=== PATIENT | male | born 1965 | race Caucasian/White ===

== ENCOUNTER 2020-06-11 08:31 | Emergency (ER) | payer OTHER, SELFPAY ==
[2020-06-11 08:43] VITALS: BP 160/85; PULSE 81; RESP 16; TEMP 37.3; O2SAT 99
--- NOTE | 2020-06-11 08:55 | ED.SKABFB ---
HPI - Skin/Abscess/Foreign Bdy General Chief complaint: Skin/Abscess/Foreign Body Stated complaint: Bee sting Time Seen by Provider: 06/11/20 08:43 Source: patient and RN notes reviewed Mode of arrival: ambulatory Limitations: no limitations History of Present Illness HPI narrative: Patient presents today after he was stung by a bee on his abdomen 2 days ago. Reports the area of redness has spread significantly since onset and has now become firm and mildly tender. He has been taking ibuprofen with mild relief. Denies fever. Does not have a known bee allergy. MD complaint: insect bite/sting Related Data Allergies Allergy/AdvReac Type Severity Reaction Status Date / Time No Known Allergies Allergy Unverified 05/28/15 21:48 Review of Systems Review of Systems: Narrative: CONSTITUTIONAL: Denies body aches, fever, chills, or sweats. EYES: Denies visual changes, redness, or discharge. ENT: Denies rhinorrhea, congestion, sore throat, or otalgia. CARDIOVASCULAR: Denies chest pain, palpitations, or edema. RESPIRATORY: Denies cough or dyspnea. GASTROINTESTINAL: Denies abdominal pain, nausea, vomiting, or diarrhea. GENITOURINARY: Denies dysuria or hematuria. SKIN: Denies rash, itching, or wounds. + Bee sting to abdomen MUSCULOSKELETAL: Denies back pain, joint pain, or myalgia. NEUROLOGIC: Denies headache, numbness, tingling, or weakness. PSYCH: Denies depression or anxiety. [facility] Family History Family History (Updated 11/05/10 @ 10:05 by DOCTOR UNKNOWN) Other Cerebrovascular accident Diabetes mellitus Family history of arthritis Hypertension Social History Social History Alcohol intake: never Comments At time of signature, I have reviewed and agree with nursing past medical, surgical, social and family history unless otherwise noted. Please see nursing chart for further information. There is no relevant family history pertinent to the presenting complaint Exam Narrative: Exam Narrative: GENERAL: Well-appearing, well-nourished, and in no acute distress. HEAD: Normocephalic, atraumatic. EYES: EOMI. No redness or drainage. Conjunctivae normal. ENT: Mucous membranes pink and moist. NECK: Normal AROM. CHEST: No respiratory distress. ABDOMEN: Soft, nontender, nondistended, normal active bowel sounds. 9x13cm area of erythema to the midline abdomen with center area of darker erythema and induration measuring 5x5cm round. Mildly tender to palpation. Scant edema to the area. No fluctuance. MUSCULOSKELETAL: No bony tenderness. EXTREMITIES: Normal range of motion. No edema. SKIN: Warm, dry. Capillary refill normal. Normal skin turgor. NEURO: No focal deficits. Alert and oriented x3. Gait steady. PSYCH: Normal affect. No signs of depression or anxiety. Course Vital Signs Vital signs: Vital Signs Temperature 99.2 F 06/11/20 08:43 Pulse Rate 81 06/11/20 08:43 Respiratory Rate 16 06/11/20 08:43 Blood Pressure 160/85 H 06/11/20 08:43 Pulse Oximetry 99 06/11/20 08:43 Temperature 99.2 F 06/11/20 08:43 Pulse Rate 81 06/11/20 08:43 Respiratory Rate 16 06/11/20 08:43 Blood Pressure 160/85 H 06/11/20 08:43 Pulse Oximetry 99 06/11/20 08:43 Reviewed. Pt has been instructed to follow up with his PCP regarding his elevated blood pressure today. MDM - Skin/Abscess/Foreign Bdy Differential Diagnosis Differential diagnosis: Likely abscess of skin or subcutaneous tissue, cellulitis, insect bites and impetigo Critical Care Time Critical Care Time Critical Care Time: No Discharge Plan Discharge Clinical Impression: Infected insect bite or sting Cellulitis Qualifiers: Site of cellulitis: trunk Site of cellulitis of trunk: abdominal wall Qualified Code(s): L03.311 - Cellulitis of abdominal wall Patient Disposition: Home, Self-Care Condition: Stable Instructions: Antibiotic Form, Cellulitis (DC) Additional Instructions: Please take the Keflex as prescribed u
== END 2020-06-11 09:05 | disposition home or self-care (01) ==
PROVIDERS: Emergency Provider Nurse Practitioner; PCP Family Medicine Adolescent Medicine
DX: L03.311 Cellulitis of abdominal wall (principal); T63.441A Toxic effect of venom of bees, accidental (unintentional), initial encounter
CPT/HCPCS: 99213; G0463

== ENCOUNTER 2021-07-08 08:18 | Emergency (ER) | payer OTHER, SELFPAY ==
[2021-07-08 08:27] VITALS: BP 136/75; PULSE 78; RESP 16; TEMP 37; O2SAT 99
--- NOTE | 2021-07-08 08:27 | ED.GENADULT ---
HPI - General Adult General Chief complaint: Unspecified Stated complaint: right side pelvic pain Time Seen by Provider: 07/08/21 08:27 Source: patient and RN notes reviewed Mode of arrival: ambulatory Limitations: no limitations History of Present Illness HPI narrative: 56-year-old male presents to the [facility] with right groin pain that started around 07 June. Had seen primary care provider was prescribed prednisone. Was running last week and irritated the area again. Was playing golf on Wednesday when the pain increased. Patient states that after playing golf had trouble walking, yesterday was better and today was having less discomfort. States Related Data Allergies Allergy/AdvReac Type Severity Reaction Status Date / Time No Known Allergies Allergy Unverified 07/08/21 08:20 Review of Systems Review of Systems: All systems reviewed & are unremarkable except as noted in HPI and below Constitutional: Constitutional: Reports no additional constitutional complaints Eyes: Eyes: Reports no additional eye complaints ENT: Reports system reviewed and no additional complaints, except as documented Cardiovascular: Cardiovascular: Reports no additional cardiovascular complaints Respiratory: Respiratory: Reports no additional respiratory complaints Gastrointestinal: Gastrointestinal: Reports no additional gastrointestinal complaints Genitourinary: Genitourinary: Reports no additional male genitourinary complaints, Denies hematuria, Denies genital pain, Denies dysuria, Denies flank pain, Denies scrotal swelling, Denies testicular pain, Denies urinary incontinence and Denies urinary urgency Musculoskeletal: Musculoskeletal: Reports as per HPI and Reports other (right groin pain) Integumentary/Breasts: Skin/Breast: Reports as per HPI Comments: bruising to the right thigh Neurologic: Reports system reviewed and no additional complaints, except as documented Psychiatric: Psychiatric: Reports no additional psychiatric complaints Allergic/Immunologic: Allergic/Immunologic: Reports no additional allergic/immunologic complaints ON LICENSE OF [facility] Past Medical History Medical History (Updated 07/08/21 @ 08:44 by Kindra Nelson) No active medical problems Surgical History Surgical History History of arthroscopic knee surgery History of back surgery Family History Family History Other Cerebrovascular accident Diabetes mellitus Family history of arthritis Hypertension Social History Social History Alcohol intake: never Comments At the time of my signature, I reviewed and agree with the nursing past medical, surgical, social, and family history. There is no relevant family history pertinent to the patient complaint. Exam Const: General: cooperative, healthy appearing, comfortable, no acute distress, well developed and alert Nutritional Appearance: average body habitus Orientation/consciousness: patient oriented x3 Limitations: no limitations HENMT: Head: normal to inspection Eyes: General: appearance normal, both eyes and all related structures Alignment and Position: alignment normal Neck: Neck: normal visual inspection, full ROM, no lymphadenopathy and no meningeal signs Chest: Chest palpation & inspection: normal inspection of the chest Resp: Effort & Inspection: normal respiratory effort, able to speak in complete sentences, normal respiratory pattern, no audible wheezes and no cough Auscultation: clear to auscultation bilaterally Cardio: Rate: regular rate Rhythm: regular rhythm GI: Inspection: normal to inspection GI Palp: No abdominal tenderness Auscultation: normal bowel sounds Back/Spine/Pelvis: Back: no CVA tenderness Cervical Spine: normal cervical lordosis Thoracic/Lumbar Spine: thoracic and lumbar spine normal to inspection Pelvis: no pain with an
== END 2021-07-08 08:41 | disposition home or self-care (01) ==
PROVIDERS: Emergency Provider Nurse Practitioner; PCP Family Medicine Adolescent Medicine
DX: S39.011A Strain of muscle, fascia and tendon of abdomen, initial encounter (principal); X50.3XXA Overexertion from repetitive movements, initial encounter; Y93.02 Activity, running
CPT/HCPCS: 99213; G0463

== ENCOUNTER → 2021-09-22 09:55 | Outpatient (CLI) | payer OTHER, SELFPAY ==
--- NOTE | ~2021-09-22 | MR_ITS ---
EXAMINATION: MR hip RT wo con DATE: 09/22/2021 11:02 INDICATION: Right groin pain. TECHNIQUE: Magnetic resonance imaging (MRI) of the right hip was performed without intravenous contra st. Sequences included axial and coronal PD-weighted FS FSE and axial T1-weighted FSE of the pelvis. Sequences of the hip included 2D FIESTA, T1-weighted fast GRE, and axial, coronal, and sagittal PD-we ighted FS FSE. COMPARISON: None FINDINGS: Bones/cartilage: Bone alignment is normal. There is bone marrow edema in the parasymphyseal pubis on either side. Ther e is a nondisplaced fracture of left parasymphyseal pubis. There is partial-thickness cartilage loss in right hip joint posteriorly. Labrum: There is a tear of right glenoid labrum. Fluid: There are small bilateral hip joint effusions. There is mild bilateral trochanteric bursitis. Soft tissues: There are partial tears of the myotendinous junctions of right pectineus and adductor longus muscles near their attachments at the pubic symphysis. There is mild tendinopathy of the hamstring origins bi laterally. The gluteus minimus and medius tendons are normal. The iliopsoas tendons are normal. IMPRESSION: 1. Partial tears of the myotendinous junctions of right pectineus and adductor longus muscles (grade 2 strains). 2. Nondisplaced fracture of left parasymphyseal pubis. Bone marrow edema in right parasymphyseal pubi s, consistent with stress reaction. 3. Mild right hip joint chondrosis. 4. Small bilateral hip joint effusions. Reviewed, dictated and finalized at location A. IMPRESSION: 1. Partial tears of the myotendinous junctions of right pectineus and adductor longus muscles (grade 2 strains). 2. Nondisplaced fracture of left parasymphyseal pubis. Bone marrow edema in rig ht parasymphyseal pubis, consistent with stress reaction. 3. Mild right hip joint chondrosis. 4. Small bilateral hip joint effusions.
== END ==
PROVIDERS: Visit Provider Orthopaedic Surgery
DX: R10.31 Right lower quadrant pain (principal); S39.011A Strain of muscle, fascia and tendon of abdomen, initial encounter; S32.502A Unspecified fracture of left pubis, initial encounter for closed fracture; M94.351 Chondrolysis, right hip; M25.452 Effusion, left hip; M25.451 Effusion, right hip
CPT/HCPCS: 73721

== ENCOUNTER 2022-03-20 01:03 | Day surgery (SDC) | payer OTHER, SELFPAY ==
[2022-03-05 14:07] VITALS: BMI 32.5
[2022-03-20 08:29] VITALS: BP 135/98; PULSE 81; RESP 17; TEMP 36.4; O2SAT 99
[2022-03-20] MEDS: LACTATED RINGERS 1,000 ML 150 ML IV CONT (08:47)
--- NOTE | 2022-03-20 08:58 | WPDANESEPPF ---
Anes - Initial Pre Proc Eval Procedure: Operation Date: 03/20/22 09:00 Proposed Procedures p Screening Colonoscopy - Daniel Velez MD Date/Time: 03/20/22 08:58 Surgeon: Daniel Velez MD Pre Op Diagnosis: neoplasm screening Patient Data Age: 56 Gender: M Height: 1.83 m Weight: 107 kg Last Vital Signs Temp 97.6 F 03/20/22 08:29 Pulse 81 03/20/22 08:29 Resp 17 03/20/22 08:29 BP 135/98 H 03/20/22 08:29 Pulse Ox 99 03/20/22 08:29 Allergies Allergy/AdvReac Type Severity Reaction Status Date / Time No Known Allergies Allergy Verified 03/20/22 08:28 Home Medications Medication Instructions Recorded Confirmed Type terbinafine HCl 250 mg tablet 250 mg PO DAILY #90 tablet 01/16/22 03/05/22 Rx finasteride 5 mg tablet 5 mg PO DAILY #90 tablet 03/04/22 03/05/22 Rx tamsulosin 0.4 mg capsule 0.4 mg PO DAILY #90 cap 03/04/22 03/05/22 Rx krill tlh-mavvxkbarx-pvlturxqw 1 cap PO DAILY 03/05/22 03/05/22 History [Move Free Ultra [place] [facility]] multivit with min-folic acid 1 tablet PO DAILY 03/05/22 03/05/22 History [Adult One Daily Multivitamin] psyllium husk [Metamucil] 1 tbsp PO DAILY 03/05/22 03/05/22 History celecoxib 200 mg capsule 200 mg PO DAILY #30 cap 03/11/22 Rx omeprazole 20 mg capsule,delayed 20 mg PO BID #60 cap 03/11/22 Rx release Patient hx anesthesia problems: none Family hx anesthesia problems: none Results Review: All pre-operative results and documents have been reviewed as part of the pre-operative evaluation. [facility] Past Medical History Medical History No active medical problems Pure hypercholesterolemia, unspecified Surgical History Surgical History History of arthroscopic knee surgery 1996 History of back surgery microdisectomy 1985 and 1998 S/P right knee arthroscopy Family History Family History Father Diabetes mellitus Heart disease Sibling Diabetes mellitus Other Cerebrovascular accident Family history of arthritis Hypertension Social History Social History (Updated 03/04/22 @ 09:05 by Moon Gage MA) Smoking status: Never smoker Second hand tobacco smoke exposure: No Alcohol intake: never Substance use: never Substance use type: does not use Living arrangements: alone 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[employer]- [employer] Gender identity (if verbalized by the patient): Male Sexual Orientation (if Verbalized by the Patient): Straight or Heterosexual Spiritual care concerns: No Agree to blood products: Yes Anes - Eval Final PreProcedure Day of Procedure 03/20/22 08:58 Patient weight: obese Heart: regular rate and rhythm Lungs: clear to auscultation Airway: Mallampati scale Neurological: alert and oriented Last oral intake: >/= 8 hours ASA classification: II Emergent: no Anesthetic plan: proceed Anesthesia type and monitoring: general GIVS and standard monitoring Results Review: All pre-operative results and documents have been reviewed as part of the pre-operative evaluation. Informed Consent: The patient's anesthetic plan and its attendant risks and benefits were discussed with the patient/family/POA. Questions were solicited and answers provided to the satisfaction of the patient/family/POA.
--- NOTE | 2022-03-20 09:05 | PM.HPGS ---
History of Present Illness History of Present Illness Consent: Risks, benefits, and alternatives have been discussed and questions answered. Patient agrees to proceed with procedure. Chief complaint: neoplasm screening Narrative: Ron Berman is a 56 year old male here for first screening colonoscopy Review of Systems Constitutional: Constitutional: Denies headache(s) and Denies weakness Eyes: Eyes: Denies blurry vision ENT: Reports Normal hearing present, Denies headache(s) and Denies neck pain Cardiovascular: Cardiovascular: Denies chest pain and Denies dyspnea Respiratory: Respiratory: Denies dyspnea Gastrointestinal: Gastrointestinal: Reports no additional gastrointestinal complaints Genitourinary: Genitourinary: Denies dysuria Musculoskeletal: Musculoskeletal: Denies neck pain Integumentary/Breasts: Skin/Breast: Denies dry skin Neurologic: Reports Normal hearing present, Denies headache(s) and Denies weakness Psychiatric: Psychiatric: Denies anxiety Endocrine: Endocrine: Denies change in body appearance Hematologic/Lymphatic: Hematologic/Lymphatic: Denies easy bleeding Allergic/Immunologic: Allergic/Immunologic: Denies urticaria PMF Past Medical History Medical History (Updated 03/20/22 @ 09:05 by Daniel Velez MD) Colon cancer screening No active medical problems Pure hypercholesterolemia, unspecified Surgical History Surgical History History of arthroscopic knee surgery 1996 History of back surgery microdisectomy 1985 and 1998 S/P right knee arthroscopy Family History Family History Father Diabetes mellitus Heart disease Sibling Diabetes mellitus Other Cerebrovascular accident Family history of arthritis Hypertension Social History Social History (Updated 03/04/22 @ 09:05 by Moon Gage MA) Smoking status: Never smoker Second hand tobacco smoke exposure: No Alcohol intake: never Substance use: never Substance use type: does not use Living arrangements: alone 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- [employer] Gender identity (if verbalized by the patient): Male Sexual Orientation (if Verbalized by the Patient): Straight or Heterosexual Spiritual care concerns: No Agree to blood products: Yes Meds Home Medications and Allergies Home Medications Medication Instructions Recorded Confirmed Type terbinafine HCl 250 mg tablet 250 mg PO DAILY #90 tablet 01/16/22 03/05/22 Rx finasteride 5 mg tablet 5 mg PO DAILY #90 tablet 03/04/22 03/05/22 Rx tamsulosin 0.4 mg capsule 0.4 mg PO DAILY #90 cap 03/04/22 03/05/22 Rx krill doj-eyatrcqnwf-phnqykosw 1 cap PO DAILY 03/05/22 03/05/22 History [Move Free Ultra [place] [facility] Pl] multivit with min-folic acid 1 tablet PO DAILY 03/05/22 03/05/22 History [Adult One Daily Multivitamin] psyllium husk [Metamucil] 1 tbsp PO DAILY 03/05/22 03/05/22 History celecoxib 200 mg capsule 200 mg PO DAILY #30 cap 03/11/22 Rx omeprazole 20 mg capsule,delayed 20 mg PO BID #60 cap 03/11/22 Rx release Allergies Allergy/AdvReac Type Severity Reaction Status Date / Time No Known Allergies Allergy Verified 03/20/22 08:28 Vital Signs Vital Signs - 24 hr 03/20/22 08:29 Temperature 97.6 F Pulse Rate 81 Respiratory Rate 17 Blood Pressure 135/98 H Pulse Oximetry 99 Exam Const: General: comfortable and no acute distress HENMT: General nose exam: Normal nares present Eyes: General: appearance normal, both eyes and all related structures Neck: Neck: no JVD Resp: Auscultation: clear to auscultation bilaterally Cardio: Rate: regular rate Rhythm: regular rhythm GI: Inspection: non-distended GI Palp: Yes Soft to palpation Skin: General skin exam: normal color Neuro: General: gait normal Speech: normal speech Extrem: General: normal to ins
[2022-03-20 09:26] VITALS: BP 126/80; PULSE 76; RESP 16; O2SAT 98
[2022-03-20 09:36] VITALS: BP 110/68; PULSE 72; RESP 17; O2SAT 98
[2022-03-20 09:46] VITALS: BP 118/83; PULSE 72; RESP 18; O2SAT 98
== END 2022-03-20 09:54 | disposition home or self-care (01) ==
PROVIDERS: PCP Family Medicine Adolescent Medicine; Visit Provider Internal Medicine Gastroenterology
PROC: 0DJD8ZZ Inspection of Lower Intestinal Tract, Via Natural or Artificial Opening Endoscopic (ICD-10-PCS; CPT 45378; principal; 2022-03-20 09:00)
DX: Z12.11 Encounter for screening for malignant neoplasm of colon (principal); K57.30 Diverticulosis of large intestine without perforation or abscess without bleeding; K64.8 Other hemorrhoids; E78.00 Pure hypercholesterolemia, unspecified; E66.9 Obesity, unspecified; Z68.32 Body mass index [BMI] 32.0-32.9, adult
CPT/HCPCS: 45378; J2704; J7120

== ENCOUNTER 2024-04-16 16:02 | Emergency (ER) | payer OTHER, SELFPAY ==
[2024-04-16 16:11] VITALS: BP 159/92; PULSE 90; RESP 16; TEMP 37.2; O2SAT 99
--- NOTE | 2024-04-16 16:36 | ED.EYEPROB ---
HPI - Eye Problem General Chief complaint: Eye Problems Stated complaint: left eye red,discharge,swollen Time Seen by Provider: 04/16/24 16:36 Source: patient Mode of arrival: ambulatory Limitations: no limitations History of Present Illness HPI Narrative: 58-year-old male presents with complaint of redness, swelling and tenderness to left upper eyelid for 1 week. No vision changes. No drainage. Getting progressively worse. Denies trauma. All systems reviewed and negative except as noted above. Related Data Home Medications Medication Instructions Recorded Confirmed krill oil-hyaluronic 1 cap PO DAILY 03/05/22 04/16/24 acid-astaxanthin 353 mg capsule (Move Free Ultra [place] [facility] Plus) multivitamin with minerals-folic 1 tablet PO DAILY 03/05/22 04/16/24 acid 0.4 mg tablet psyllium husk 3.4 gram/5.4 gram 1 tbsp PO DAILY 03/05/22 04/16/24 oral powder (Metamucil) Allergies Allergy/AdvReac Type Severity Reaction Status Date / Time No Known Allergies Allergy Verified 04/16/24 16:25 Review of Systems Review of Systems: CONSTITUTIONAL: Denies fever, chills, or sweats. EYES: Denies visual changes, redness, or discharge. ENT: Denies rhinorrhea, congestion, sore throat, or otalgia. CARDIOVASCULAR: Denies chest pain, palpitations, or edema. RESPIRATORY: Denies cough or dyspnea. GASTROINTESTINAL: Denies abdominal pain, nausea, vomiting, or diarrhea. GENITOURINARY: Denies dysuria or hematuria. SKIN: Denies rash or itching. Reports redness, swelling and tenderness to left upper eyelid. MUSCULOSKELETAL: Denies back pain, joint pain, or myalgia. NEUROLOGIC: Denies headache, numbness, or weakness. PSYCHIATRIC: Denies anxiety or depression. All other systems reviewed are negative, except as documented in HPI. [facility] Past Medical History Medical History (Updated 04/16/24 @ 16:41 by Es Lawson NP) Colon cancer screening No active medical problems Pure hypercholesterolemia, unspecified Surgical History Surgical History (System 05/24/23 @ 14:51 by Allan Childers) History of arthroscopic knee surgery 1996 History of back surgery microdisectomy 1985 and 1998 S/P right knee arthroscopy Family History Family History Father Diabetes mellitus Heart disease Sibling Diabetes mellitus Other Cerebrovascular accident Family history of arthritis Hypertension Social History Social History (Updated 12/24/23 @ 08:40 by Brigitte Jacome CMA) Smoking status: Never smoker Second hand tobacco smoke exposure: No Alcohol intake: never Substance use: never Substance use type: does not use Do You Feel Safe in your Home?: Yes Lack of Transportation: No Lack of Food: Never True Current Housing: Decline to Answer Concerned About Future Housing: Decline to Answer Difficulty Paying Gas/Electric Bills: Decline to Answer Difficulty Paying for Meds: Decline to Answer Currently Unemployed: Decline to Answer Education: Decline to Answer Difficulty w/ Childcare or Family Care: Decline to Answer Living arrangements: alone Occupation/Education: occupation 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 There is no relevant family history pertinent to the presenting complaint. Exam Narrative: GENERAL: This is a well-nourished, well-developed patient, in no apparent distress. HEAD: normocephalic, atraumatic. EYES: PERRL. Sclera clear/white. Vision is grossly intact. EARS: External ears normal NOSE: External nose normal NECK: Neck supple, non-tender without lymphadenopathy, masses or thyromegaly. CARDI
== END 2024-04-16 16:46 | disposition home or self-care (01) ==
PROVIDERS: Emergency Provider Nurse Practitioner Family; PCP Family Medicine Adolescent Medicine
DX: H00.034 Abscess of left upper eyelid (principal); H00.014 Hordeolum externum left upper eyelid; E78.00 Pure hypercholesterolemia, unspecified
CPT/HCPCS: 99213; G0463

== ENCOUNTER 2024-12-28 07:01 | Outpatient (CLI) | payer OTHER, SELFPAY ==
--- NOTE | ~2024-12-28 | MR_ITS ---
EXAMINATION: MR knee LT wo con DATE: 12/28/2024 07:29 INDICATION: Left knee injury, pain, and effusion. TECHNIQUE: Magnetic resonance imaging (MRI) of the left knee was performed without intravenous contra st. Sequences included axial PD-weighted FS FSE, coronal PD-weighted FSE and PD-weighted FS FSE, sagi ttal PD-weighted FSE, and sagittal T2-weighted FS FSE. COMPARISON: None. FINDINGS: Medial compartment: Medial meniscus is normal. Tibial cartilage is normal. There is deep cartilage fissuring of femoral c ondyle involving the posterior articular surface. There is shallow partial-thickness cartilage loss i nvolving the central articular surface. Osteophytes are noted. Lateral compartment: Lateral meniscus is normal. There is cartilage surface irregularity of tibial condyle and femoral con dyle. Osteophytes are noted. Patellofemoral compartment: There is full-thickness cartilage loss of patellar median ridge and lateral facet with cortical remod eling and mild subchondral edema-like signal intensity. There is partial-thickness cartilage loss of patellar medial facet. There is full-thickness cartilage loss of femoral trochlea with cortical remod eling and mild subchondral edema-like marrow signal intensity. There is partial-thickness cartilage l oss of central and medial trochlea. Osteophytes are noted. Ligaments and tendons: Anterior cruciate ligament is normal. There is a complete tear of posterior cruciate ligament. There are changes of prior sprains of medial collateral ligament and fibular collateral ligament characteri zed by thickening and increased signal intensity. There is mild patellar tendinopathy. Fluid: There is a small knee joint effusion. There is a small Lambert's cyst. There is mild prepatellar and vanessa perficial infrapatellar bursitis. IMPRESSION: 1. Severe chondrosis of patellofemoral compartment, moderate chondrosis of medial compartment, and mi ld chondrosis of lateral compartment. 2. Complete tear of posterior cruciate ligament. 3. Small knee joint effusion. Reviewed, dictated and finalized at location A. [facility] IMPRESSION: 1. Severe chondrosis of patellofemoral compartment, moderate chondrosis of medi al compartment, and mild chondrosis of lateral compartment. 2. Complete tear of posterior cruciate ligament. 3. Small knee joint effusion.
== END 2024-12-28 07:02 | disposition home or self-care (01) ==
PROVIDERS: PCP Orthopaedic Surgery; Visit Provider Family Medicine Adolescent Medicine
DX: S83.522A Sprain of posterior cruciate ligament of left knee, initial encounter (principal); X58.XXXA Exposure to other specified factors, initial encounter; M25.462 Effusion, left knee
CPT/HCPCS: 73721

== ENCOUNTER → 2025-09-03 16:02 | Outpatient (CLI) | payer OTHER, SELFPAY ==
--- NOTE | ~2025-09-03 | XR_ITS ---
EXAMINATION: XR shoulder RT min 2V, 09/03/2025 16:06 CDT HISTORY: M25.511 occasional RT shoulder pain 3 weeks no injury COMPARISON: No comparisons available. Findings: No acute fracture or malalignment. No significant degenerative changes. Soft tissues unremarkable. Impression: No acute fracture or malalignment. Reviewed, dictated and finalized at location P. Impression: No acute fracture or malalignment.
== END ==
LOC: EXPCRAD 16:04
PROVIDERS: PCP Nurse Practitioner Family; Visit Provider Nurse Practitioner Family
DX: M25.511 Pain in right shoulder (principal)
CPT/HCPCS: 73030